=== PATIENT | female | born 1955 | race Caucasian/White ===

== ENCOUNTER 2018-12-25 14:22 | Outpatient (CLI) | payer BC ==
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
--- NOTE | 2018-12-25 15:22 | RAD ---
CERVICAL SPINE SERIES 3 VIEWS: Date: 12/25/18 HISTORY: Neck pain and tingling in left fingers. FINDINGS: Vertebral bodies are normal in height. There is moderate disc narrowing at C3-4. There is severe disc narrowing at C4-5, C5-6, and C6-7. Degenerative facet changes are noted. IMPRESSION: Marked arthritic changes of the lower cervical spine. POS: [facility]
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
== END 2018-12-25 14:23 | disposition home or self-care (01) ==
LOC: BICRAD 14:22
PROVIDERS: ATTEND Family Medicine
DX: Z04.1 Encounter for examination and observation following transport accident (principal); V89.2XXA Person injured in unspecified motor-vehicle accident, traffic, initial encounter; M47.812 Spondylosis without myelopathy or radiculopathy, cervical region
CPT/HCPCS: 71046; 72040